=== PATIENT | female | born 1985 | race Caucasian/White ===

== ENCOUNTER → 2019-03-01 | Day surgery (SDC) | payer OTHER ==
[~2019-03-01] MED LIST: ALBU2.5V8 INH; IV RINGERS,LACTATED 1000ML 1,000 ML IV SCH; LIDOCAINE 2% PF 5 ML VIAL. ONE; PROPOFOL 20 ML IV ONE; PROPOFOL 40 ML IV ONE
[2019-03-01 18:14] VITALS: BP 94/50
--- NOTE | 2019-03-02 02:34 | CONS ---
DATE OF CONSULTATION: 03/01/2019 REASON FOR CONSULTATION: Abnormal PET scan. REFERRING PHYSICIAN: Dr. Stone of [facility]. HISTORY OF PRESENT ILLNESS: A 33-year-old female with past medical history significant for 1, para 1, history of asthma, seen with cervical cancer. She underwent staging PET scan, which revealed possible light up in the right colon approximately 4 cm in length. No bleeding, diarrhea or constipation noted. No family history of inflammatory bowel disease or colon cancer is appreciated. She has not undergone previous endoscopic studies. She has otherwise stable weight and appetite and has no additional complaints. PAST MEDICAL HISTORY: Cervical cancer, asthma. ALLERGIES: None. MEDICATIONS: Albuterol 1 puff every 6 hours p.r.n. SOCIAL HISTORY: Does not drink or smoke. FAMILY HISTORY: Noncontributory. REVIEW OF SYSTEMS: HEENT: No decrease in visual acuity issues. CARDIAC: There is no history of hypertension, palpitations, syncope. PULMONARY: There is history of asthma. NEUROLOGIC: No stroke, migraine, neuropathy. PSYCHIATRIC: No mood swings, depression, insomnia. GASTROINTESTINAL: See history of present illness. HEMATOLOGIC: No bleeding, bruising, coagulopathy. DERMATOLOGIC: No skin rashes or pruritus. PHYSICAL EXAMINATION: GENERAL: Reveals a well-nourished, well-developed female who is alert, cooperative, in no acute distress. VITAL SIGNS: Temperature 98.3, pulse 66, respiratory rate 18. HEENT: Normocephalic, atraumatic head. Pupils and extraocular movements are not tested. Sclerae anicteric. NECK: Supple. LUNGS: Clear. CARDIOVASCULAR: Reveals an S1, S2 without S3, S4 or appreciable murmur. ABDOMEN: Reveals a soft abdomen, normal bowel sounds, without appreciable hepatosplenomegaly. EXTREMITIES: Reveals no cyanosis, clubbing or edema. IMPRESSION AND PLAN: Abnormal PET scan. We would recommend the patient to undergo colonoscopy to assess for potential adenomatous polyp or metastatic cervical cancer within the right colon. The risks and benefits have been discussed with the patient including risk of hemorrhage and perforation and is willing to proceed at this time. I would like to thank Dr. Stone for allowing us to consult and participate in the patient's care. ABHISHEK LERMA MD DR: SABRINA/sahil JOB#: [id number] / [id number]
== END ==
LOC: SURG 16:20
PROVIDERS: ATTEND Internal Medicine Gastroenterology
DX: R93.3 Abnormal findings on diagnostic imaging of other parts of digestive tract (principal); K64.0 First degree hemorrhoids; J45.909 Unspecified asthma, uncomplicated; Z85.41 Personal history of malignant neoplasm of cervix uteri
CPT/HCPCS: 45378; J2001; J2704